=== PATIENT | female | born 1975 | race Caucasian/White ===

== ENCOUNTER 2019-02-11 06:24 | Day surgery (SDC) | payer SELFPAY, OTHER | END 2019-02-12 15:50 | disposition home or self-care (01) | LOC: FASU 06:24 → FM/S 14:47 → FASU 02-12 15:50 → FM/S 14:47 ==

== ENCOUNTER 2020-09-28 06:19 | Day surgery (SDC) | payer SELFPAY ==
[2020-09-23 12:25] VITALS: BMI 26.5
[2020-09-28] MEDS ORDERED: LIDOCAINE HCL 1%, 10 MG/ML (20ML VIAL) ONE (07:14)
[2020-09-28] MEDS ORDERED: EPINEPHrine/PF 1 MG/1 ML (1:1,000) AMPULE ONE (07:15)
[2020-09-28] MEDS ORDERED: fentaNYL CITRATE 250 MCG/5 ML VIAL ONE (07:51)
[2020-09-28] MEDS ORDERED: PROPOFOL 20 ML ONE ×3 (07:52→09:12)
[2020-09-28] MEDS ORDERED: SUCCINYLCHOLINE CHLORIDE 200 MG/10 ML SYRINGE ONE (07:52)
[2020-09-28] MEDS ORDERED: MIDAZOLAM HCL 2 MG/2 ML SINGLE DOSE VIAL ONE (07:52)
[2020-09-28] MEDS ORDERED: ROCURONIUM BROMIDE 50 MG/5 ML SYRINGE ONE (07:52)
[2020-09-28] MEDS ORDERED: LIDOCAINE HCL/PF 2% SDV 5ML VIAL ONE (07:54)
[2020-09-28] MEDS ORDERED: LIDOCAINE HCL 2% JELLY (5 ML/TUBE) ONE (07:54)
[2020-09-28] MEDS ORDERED: ceFAZolin SODIUM 1 GM VIAL ONE (08:18)
[2020-09-28] MEDS ORDERED: ONDANSETRON 4 MG/2 ML VIAL ONE (08:18)
[2020-09-28] MEDS ORDERED: DEXAMETHASONE SOD PHOSPHATE 4 MG/1 ML VIAL ONE (08:18)
[2020-09-28] MEDS ORDERED: KETOROLAC TROMETHAMINE 30 MG/1 ML VIAL ONE (08:18)
[2020-09-28] MEDS ORDERED: GLYCOPYRROLATE 0.2 MG/1 ML VIAL ONE (09:21)
[2020-09-28] MEDS ORDERED: NEOSTIGMINE METHYLSULFATE 0.5 MG/1 ML - 10 ML MDV ONE (09:21)
[2020-09-28] MEDS ORDERED: BACITRACIN 15 GM TUBE TOPICAL OINTMENT ONE (09:33)
[2020-09-28] MEDS ORDERED: oxyCODONE HCL 5 MG TABLET PO PRN ×4 (10:01→10:03)
[2020-09-28] MEDS ORDERED: ONDANSETRON 4 MG/2 ML VIAL IVPB PRN (10:01)
[2020-09-28] MEDS ORDERED: ONDANSETRON 4 MG/2 ML VIAL IVPUSH PRN (10:03)
[2020-09-28] MEDS ORDERED: PROMETHAZINE HCL 25 MG/1 ML VIAL IVPUSH PRN (10:03)
[2020-09-28] MEDS ORDERED: LACTATED RINGERS SOLUTION 1,000 ML IV SCH (10:15)
[2020-09-28] MEDS ORDERED: oxyCODONE HCL 5 MG TABLET ONE (11:37)
[2020-09-28 11:53] VITALS: TEMP 97.7
[2020-09-28 13:05] VITALS: BP 108/63; PULSE 84
== END 2020-09-28 12:50 | disposition home or self-care (01) ==
LOC: FASU 06:19
PROVIDERS: ATTEND Plastic Surgery
CPT/HCPCS: 81025; 94760